=== PATIENT | male | born 1935 | race Caucasian/White ===

== ENCOUNTER 2017-10-11 00:04 | Inpatient (IN) ==
--- NOTE | 2017-10-11 00:39 | Emergency Department Report ---
Asthma HPI - General Chief Complaint: Upper Respiratory Infection Stated Complaint: fluid build up poss due to CHF, SOB Time Seen by Provider: 10/11/17 00:15 Source: patient, RN notes reviewed, old records reviewed Mode of arrival: ambulatory Limitations: no limitations - History of Present Illness HPI Narrative: 82yo man presents to the ER for evaluation of dyspnea/orthopnea. Pt began to note some new shortness of breath early this AM. His sx have gotten progressively worse throughout the day, but he was not troubled by his sx until he tried to sleep tonight. Pt lay down around 2100; could not sleep due to his dyspnea, so he presented to the ER for evaluation. Pt has a h/o CHF; no pedal edema noted. MD complaint: shortness of breath Onset (ago): hour(s) Severity: moderate, worse than usual Context: none known Associated symptoms: none - Related Data Current Asthma Therapy: none Home Medications Medication Instructions Recorded Confirmed Amiodarone [Pacerone] 200 mg PO DAILY #0 07/09/10 10/11/17 Simvastatin [Zocor] 20 mg PO DAILY #0 07/09/10 10/11/17 Timolol Maleate/Pf [Timoptic 0.5% 1 drop LEFT EYE PRN PRN #0 ml 11/02/14 Ocudose Drop] Warfarin Sodium 2 mg PO DAILY #0 11/02/14 10/11/17 Bumetanide 1 mg PO AM #0 tab 06/16/16 10/11/17 Midodrine HCl 10 mg PO TID #0 tab 06/16/16 10/11/17 metOLazone [Metolazone] 2.5 mg PO WEEKLY #0 tab 06/16/16 10/11/17 Spironolactone [Aldactone] 25 mg PO DAILY 07/03/17 10/11/17 Bumetanide 0.5 mg PO PM 10/11/17 10/11/17 Cyanocobalamin (Vitamin B-12) 2,000 mg PO DAILY 10/11/17 10/11/17 [Vitamin B12] Allergies Allergy/AdvReac Type Severity Reaction Status Date / Time carvedilol Allergy Verified 10/11/17 00:31 minocycline Allergy Verified 10/11/17 00:31 Review of Systems All systems: reviewed and negative except as stated Cardiovascular: Reports: as per HPI, dyspnea on exertion, orthopnea. Denies: chest pain, palpitations, edema, syncope, paroxysmal nocturnal dyspnea [facility] Patient Stated Medical History Cataracts Yes Glaucoma Yes Angina Yes Congestive Heart Failure Yes: 'WORKS AT 15%' Hypotension Yes Valvular Heart Disease Yes: 'MITRAL VALVE LEAKS' Other Cardiology Yes: 'MY HEART IS ENLARGED' Gastroesophageal Reflux Yes Disease Clotting Problems Yes: WARFRIN Osteoarthritis Yes Surgical History: General: EGD, colonoscopy, tonsils. Cardiac: cardiac cath, implantable defib. Joint: knee - Social History Smoking status: Never smoker Physical Exam - Limitations Limitations: no limitations - General General appearance: alert, in no apparent distress - Normal Exams: Head:: Normocephalic without trauma Eyes:: Pupils are PERRLA w/ EOMI, No scleral icterus, irritation, or foreign bodies noted ENMT:: No facial trauma, nasal exudates, pharyngeal erythema, or exudates are noted Neck:: Full range of motion, without adenopathy Lymphatic:: No lymphadenopathy Musculoskeletal:: No tenderness, or deformity noted Integumentary:: No rashes, hives, or bruising noted Neurological:: Patient is alert, and oriented Psychiatric:: Patient exhibits, appropriate attention - Chest Chest inspection: Present: normal inspection, symmetric chest wall rise. Absent : tenderness, rash - Respiratory Respiratory exam: Present: crackles (B/l LL). Absent: normal lung sounds bilaterally, respiratory distress, wheezes, stridor, prolonged expiratory phase - Cardiovascular Cardiovascular exam: Present: regular rate, normal rhythm, +S1, +S2, +S4. Absent: normal heart sounds, rubs, gallop, clicks, +S3 - Extremities Exam Extremities exam: Present: normal inspection, full ROM, normal capillary refill. Absent: tenderness, pedal edema Course - Consultations Consultation #1: Tele-hospitalist: Will admit for obs. Time: 02:46 Vital Signs Temperature 98.7 F 10/11/17 00:08 Pulse Rate 78 10/11/17 00:08 Respiratory Rate 20 10/11/17 00:08 Blood Pressure 101/66 10/11/17 00:08 Pulse Oximetry 92 10/11/17 00:08 Temperature 98.7 F 10/11/17 00:08 Pulse Rate 64 10/11/17 02:30 Respiratory Rate 18 10/11/17 01:45 Blood Pressure 104/73 10/11/17 01:45 Pulse Oximetry 92 10/11/17 02:45 Dyspnea - MDM Narrative Medical decision making narrative: Pt with CHF exacerbation in the setting of CRF. IV Bumex has caused pt to off- load appx 400cc in the ER, with improvement in pts SaO2 (from 69% on RA to 86%) , but pt still not oxygenating adequately without supplemental O2. Discussed pt with tele-hospitalist, who will admit for overnight obs. - Differential Diagnosis Differential diagnosis: Likely: Pneumonia, Pulmonary edema systolic, Pulmonary edema dystolic, Pneumothorax - Medical Records Attestation: I reviewed the patient's medical records. - Lab Data Attestation: I reviewed the patient's lab results. Result diagrams: 10/11/17 00:40 10/11/17 00:41 Lab Results 10/11/17 10/11/17 10/11/17 Range/Units 00:40 00:40 00:41 WBC 5.4 (4.5-11.0) T/MM3 RBC 4.24 L (4.50-5.90) M/MM3 Hgb 11.9 L (13.5-17.5) GM/DL Hct 37.3 L (41-53) % MCV 88.0 (80-100) UM3 MCH 28.1 (26-34) UUG MCHC 31.9 (31-37) GM/DL RDW Std Deviation 50.2 (36.9-50.2) FL Plt Count 213 (130-400) T/MM3 MPV 9.2 L (9.4-12.4) UM3 Immature Gran % (Auto) 0.4 (0.0-0.5) % Neut % (Auto) 71.3 H (33-66) % Lymph % (Auto) 14.4 L (23-45) % [place] % (Auto) 12.2 H (0-9.0) % Eos % (Auto) 1.3 (0-4) % Baso % (Auto) 0.4 (0-2) % Neut # (Auto) 3.9 (1.8-7.7) T/MM3 Lymph # (Auto) 0.8 L (1-4.8) T/MM3 [place] # (Auto) 0.7 (0-0.8) T/MM3 Eos # (Auto) 0.1 (0-0.5) T/MM3 Baso # (Auto) 0.0 (0-0.2) T/MM3 Abs Immat Gran (auto) 0.02 (0.00-0.03) T/MM3 Turbidity < 20 (0-20) Sodium 139 (134-144) MEQ/L Potassium 3.4 L (3.6-5) MEQ/L Chloride 100 (98-107) MEQ/L Carbon Dioxide 26 (22-30) MEQ/L Anion Gap 13 (5-15) MEQ/L BUN 49.0 H (9-20) MG/DL Creatinine 2.8 H (0.8-1.5) MG/DL GFR Calculation 22 BUN/Creatinine Ratio 18 (6-26) RATIO Glucose 117 H (75-110) MG/DL Calculated Osmolality 282 H (261-280) MOSM/KG Calcium 9.1 (8.4-10.2) MG/DL Icterus Index < 2 (0-7) Troponin I 0.056 (0-0.12) ng/ml B-Natriuretic Peptide 26025 H (0-175) pg/mL Plasma Lactate 1.1 (0.6-2.2) MMOL/L Specimen Hemolysis < 15 (0-25) Influenza Type A (PCR) Negative (Negative) Influenza Type B (PCR) Negative (Negative) - Radiology Data Attestation: I reviewed the patient's radiology results. CXR: Marginally increased vascular prominence compared to prior films. C/w viral process vs increasing pulm congestion. - EKG Data EKG #1 EKG attestation: Yes: I reviewed and interpreted this EKG. EKG results narrative: Electronically paced Disposition Clinical Impression: Hypoxemia CHF exacerbation Qualifiers: Congestive heart failure type: unspecified Qualified Code(s): I50.9 - Heart failure, unspecified CRF (chronic renal failure) Qualifiers: Chronic kidney disease stage: stage 4 (severe) Qualified Code(s): N18.4 - Chronic kidney disease, stage 4 (severe) Disposition: [facility] [place] Print Language: Arabic Prescriptions: No Action Simvastatin [Zocor] 20 mg PO DAILY #0 Amiodarone [Pacerone] 200 mg PO DAILY #0 Warfarin Sodium 2 mg PO DAILY #0 Timolol Maleate/Pf [Timoptic 0.5% Ocudose Drop] 1 drop LEFT EYE PRN PRN #0 ml PRN Reason: Dry Eyes Midodrine HCl 10 mg PO TID #0 tab Bumetanide 0.5 mg PO PM Cyanocobalamin (Vitamin B-12) [Vitamin B12] 2,000 mg PO DAILY Bumetanide 1 mg PO AM #0 tab metOLazone [Metolazone] 2.5 mg PO WEEKLY #0 tab Spironolactone [Aldactone] 25 mg PO DAILY Referrals: Chai Martinez MD [Primary Care Provider] - Time of Disposition: 03:05 - Seen By: physician
[2017-10-11] MEDS: SALINE FLUSH 10ml SYRINGE IVF PRN ×3 (00:41→05:10)
[2017-10-11] MEDS ORDERED: BUMETANIDE 2.5mg/10ml INJECTION IVP ONE (01:40)
--- NOTE | 2017-10-11 03:30 | History & Physical Report ---
History of Present Illness Date: 10/11/17 Chief complaint: shortness of air HPI: 82 y/o male w/ h/o cardiomyopathy, CHF, valvular heart disease and multiple other medical conditions presents to ER brought by his son d/t increasing dyspnea / shortness of air over the past 24 hours and also orthopnea noted when he tried to go to bed last night. Patient states he took a Metolazone tab yesterday morning however did not help - has helped in the past but not this time. Denies cp, diaphoresis, dysphagia, n/v/d, melena, palpitations, dizziness, lightheadedness and syncope; reports HARDY starting just before leaving home for the ER - states is better now In ED had initial sats on RA in the 60s, given O2 at 2L/min, a dose of Bumex 1mg IV x one and sats now in the 90s on 2 L/min. Patient is not on any O2 at [facility]. CXR showed increased pulmonary vascular congestion, no acute infectious process. Influenza swabs were negative. BUN/Cr = 45/2.8; BNP = 31,700. Troponin = 0.056 Patient to be admitted to the hospitalist service for further evaluation and management and Cardiology consulted. Review of Systems All systems PM: 10-point ROS was reviewed, no additional remarkable complaints except Past Medical History Patient Stated Medical History Cataracts Yes Glaucoma Yes Angina Yes Congestive Heart Failure Yes: 'WORKS AT 15%' Hypotension Yes Valvular Heart Disease Yes: 'MITRAL VALVE LEAKS' Other Cardiology Yes: 'MY HEART IS ENLARGED' Gastroesophageal Reflux Yes Disease Clotting Problems Yes: WARFRIN Osteoarthritis Yes Was not a candidate for the mitral clip Surgical History: General: EGD, colonoscopy, tonsils. Cardiac: cardiac cath, implantable defib. Joint: knee Family History Updates: No significant family history updates reported - Social History Smoking status: Never smoker Medications Home Medications Medication Instructions Recorded Confirmed Type Amiodarone [Pacerone] 200 mg PO DAILY #0 07/09/10 10/11/17 History Simvastatin [Zocor] 20 mg PO DAILY #0 07/09/10 10/11/17 History Timolol Maleate/Pf [Timoptic 0.5% 1 drop LEFT EYE PRN PRN #0 ml 11/02/14 History Ocudose Drop] Warfarin Sodium 2 mg PO DAILY #0 11/02/14 10/11/17 History Bumetanide 1 mg PO AM #0 tab 06/16/16 10/11/17 History Midodrine HCl 10 mg PO TID #0 tab 06/16/16 10/11/17 History metOLazone [Metolazone] 2.5 mg PO WEEKLY #0 tab 06/16/16 10/11/17 History Spironolactone [Aldactone] 25 mg PO DAILY 07/03/17 10/11/17 History Bumetanide 0.5 mg PO PM 10/11/17 10/11/17 History Cyanocobalamin (Vitamin B-12) 2,000 mg PO DAILY 10/11/17 10/11/17 History [Vitamin B12] Allergies Allergy/AdvReac Type Severity Reaction Status Date / Time carvedilol Allergy Verified 10/11/17 00:31 minocycline Allergy Verified 10/11/17 00:31 Exam Vital Signs: Temperature 98.7 F 10/11/17 00:08 Pulse Rate 64 10/11/17 02:30 Respiratory Rate 18 10/11/17 01:45 Blood Pressure 104/73 10/11/17 01:45 Pulse Oximetry 92 10/11/17 02:45 Height/Weight/BMI: Height 1.65 m Weight 69.3 kg - Constitutional Present: no acute distress, well nourished, well developed - Routine HEENT Exam Head: Present: normocephalic, atraumatic Eye: Present: EOMI, PERRL ENT: Present: mucous membranes moist, nares patent - Routine Neck Exam Present: supple, full ROM - Routine Respiratory Exam Present: crackles (bibasilar). Absent: accessory muscle use, respiratory distress, wheezes - Routine Cardiovascular Exam Present: S1, S2 - Routine Abdominal Exam Present: soft, normoactive bowel sounds, non distended, non tender - Routine Extremities Exam Absent: cyanosis, clubbing, edema - Routine Skin Exam Present: dry - Routine Neurological Exam Present: alert, oriented X3, CN II-XII intact - Routine Psychiatric Exam Present: normal affect, normal thought process Results - Labs CBC & Chem 7: 10/11/17 07:15 10/11/17 07:15 Microbiology Results: Microbiology 10/11/17 00:40 Peripheral/Iv Start Blood Culture - Preliminary Culture Initiated - Results Pending 10/11/17 00:41 Peripheral/Iv Start Blood Culture - Preliminary Culture Initiated - Results Pending Assessment and Plan Assessment and Plan: A/ 1) Acute exacerbation of CHF 2) Acute Hypoxia r/t #1 3) CKD stage IV 4) Cardiomyopathy 5) Valvular heart disease w/ severe MR 6) HLD 7) H/o HTN however now hypotensive on midodrine P/ Admit to Hospitalist Bumex 1mg IV q 12 hours for now - continue to reassess need as indicated; holding po dose while on IV Bumex Labs in AM including CBC, BMP, Troponin and PT/INR Oxygen therapy Cardiology consult - sees Dr. Lubin Telemetry SCDs Continue warfarin Home meds as indicated I discussed the plan of care w/ the patient and the patient verbalized understanding and agreement. ABRAHAM Assessment Acute on chronic systolic heart failure Acute pulmonary edema Acute hypoxia secondary to above. 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 Anticipate greater than 2 midnights of care needed. Cardiac tele secondary to afib, cardiomyopathy and medications. Check Serial troponin due to HF. Supplemental oxygen to maintain saturations. Increase Bumex to help motivate fluid - Bumex 1mg IV BID orders. Will need to monitor creatinine, potassium, and BP closely. Consult with Dr Lubin for cardiac evaluation. Continue with Coumadin, monitoring INR. Pharm consult for management. Home medications to continue - holding oral Bumex while on IV Bumex. PT/OT consult for cardiac rehabilitation. Check liver enzymes secondary to heart failure and medication use. Check TSH secondary to medication use and HF. DNR as per his requests. Care to return to Dr Martinez at time of discharge from [facility]. DVT Prophylaxis: SCD's, Coumadin Resuscitation Status: Full Code - Physician Narrative Physician: Michael Humphreys MD Narrative: Date: 10/11/17 Time: 1340 I have independently interviewed and examined pt. Chart reviewed. Reviewed old records. Reviewed above not and concur. CC: Difficulty breathing/SOA HPI: 82 y/ male with Severe nonischemic dilatated cardiomyopathy and stage 4 CKD presents to ED secondary to difficulty breathing. Notes very mild increased SOA in days prior to presentation. Not have cough/congestion/viral syndrome. Did take his weekly metolazone as scheduled yesterday. However, noted he did not having increase urine output with the metolazone as he usually dose-very little urine out yesterday. No urinary burning or discomfort. Feels was emptying bladder well. Had minor increased SOA during day. Not having increased LE edema. Went to bed. Did wake from sleep with significant SOA-could not catch his breath. Did feel full to chest. No palpitations. Appetite normal-no n/v or ab pain. Stools stable with OTC medications. No f/c. Not having spams or cramps to extremities. No unilateral weakness/numbness. With breathing so severe, contacted son to take him to ED for evaluation. Hypoxic on presentation (RA saturation 83%)-does not use O2 at home. CXR showing pulmonary edema. Admitted to inpatient status for further evaluation and treatment. PMHx: Chronic systolic heart failure-severe nonischemic dilated cardiomyopathy with EF 15-35%, Valvular heart disease with severe MR, Afib, Warfarin anticoagulation due to afib/cardiomyopathy, HDL, Hx hypertension, Chronic hypotension secondary to cardiomyopathy, Stage 4 CKD, GERD, BPH, OA. PSxHx: Hx defibrilatory placement, right knee replacement, cataract Sx. All: Coreg, minocycline MEDS: see MAR SHx: , resides independently in 1 bedroom apt at [place]. No smoking. Michelle PCP, [facility], Kendrick Brandon Renal FHx: Father at 97 - uncertain cause. Mother at 54-[place]. Brother at 49-[place]. ROS: As in HPI. Remainder of 10 point ROS discussed and negative. Of not, pt's reflux better since starting on medication by Dr Martinez-not listed on NOV. Does not arthritic pain to neck-uses aspercreme with good success. Exam GEN: WDWNWM awake and alert. Converses well. HEENT: NC/AT PERRLA EOMI MMM Neck: midline, supple, no tracheal deviation CV: regular Lungs: decreased bilaterally, diffuse crackles bilaterally. No distress on RA AB: soft nt/nd +BS EXT: no c/c. Trace LE Edema Neuro: CN II-XII intact. No focal motor deficits Psych: awake alert appropriate. Thoughts linear. MS: normal muscle strength and tone in upper/lower ext SKIN: warm and dry Lab: reviewed. Assessment Acute on chronic systolic heart failure Acute pulmonary edema Acute hypoxia secondary to above. 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 Anticipate greater than 2 midnights of care needed. Cardiac tele secondary to afib, cardiomyopathy and medications. Check Serial troponin due to HF. Supplemental oxygen to maintain saturations. Increase Bumex to help motivate fluid - Bumex 1mg IV BID orders. Will need to monitor creatinine, potassium, and BP closely. Consult with Dr Lubin for cardiac evaluation. Continue with Coumadin, monitoring INR. Pharm consult for management. Home medications to continue - holding oral Bumex while on IV Bumex. Replace potassium. PT/OT consult for cardiac rehabilitation. Check liver enzymes secondary to heart failure and medication use. Check TSH secondary to medication use and HF. DNR as per his requests. Care to return to Dr Martinez at time of discharge from [facility]. Hospital Course Summary Disclaimer: The visit summary below is not to be considered part of the above Progress Note. Hospital Course: 10/11/17 Admission Inpatient admission for treatment of acute systolic heart failure with subsequent pulmonary edema and hypoxia. Anticipate greater than 2 midnights of care needed. Cardiac tele secondary to afib, cardiomyopathy and medications. Check Serial troponin due to HF. Supplemental oxygen to maintain saturations. Increase Bumex to help motivate fluid - Bumex 1mg IV BID orders. Will need to monitor creatinine, potassium, and BP closely. Consult with Dr Lubin for cardiac evaluation. Continue with Coumadin, monitoring INR. Pharm consult for management. Home medications to continue - holding oral Bumex while on IV Bumex. Replace potassium. PT/OT consult for cardiac rehabilitation. Check liver enzymes secondary to heart failure and medication use. Check TSH secondary to medication use and HF. DNR as per his requests. Care to return to Dr Martinez at time of discharge from [facility].
[2017-10-11 04:40] VITALS: BMI 24.9
--- NOTE | 2017-10-11 06:54 | XRay Report ---
Indication: Dyspnea Procedure: XR chest 1V: Encounter: Initial Comparison: 07/03/2017 Technique: A single portable AP chest radiograph was obtained. Findings: Life support devices: Unchanged left pectoral dual-chamber biventricular pacer/ICD device. Lungs and airways: Normal lung volumes. No focal airspace consolidation. Pulmonary vascular redistribution. Increased basilar interstitial markings. Pleura: No pleural effusion or pneumothorax. Heart and mediastinum: Cardiomegaly. Aortic atherosclerosis. Osseous structures and soft tissues: No acute osseous abnormality is seen. Impression: Cardiomegaly with pulmonary vascular redistribution and increased basilar interstitial markings suggesting mild congestive changes and early interstitial edema. .
[2017-10-11] MEDS ORDERED: BUMETANIDE 2.5mg/10ml INJECTION IVP SCH (08:00)
[2017-10-11] MEDS: TIMOLOL 0.5% EYE DROPS 5 ML LEFT EYE SCH ×2 (09:20→20:43)
[2017-10-11] MEDS: ACETAMINOPHEN 325 MG TABLET PO PRN ×2 (09:20→22:50)
[2017-10-11] MEDS: AMIODARONE 200 MG TABLET PO SCH (09:21)
[2017-10-11] MEDS: SPIRONOLACTONE 25 MG TABLET PO SCH (09:21)
[2017-10-11] MEDS: MIDODRINE 10 MG TABLET PO SCH ×3 (09:21→17:19)
[2017-10-11] MEDS ORDERED: WARFARIN 2 MG TABLET PO SCH (12:00)
[2017-10-11] MEDS ORDERED: BISACODYL 10 MG SUPPOSITORY RECTALLY PRN (12:49)
[2017-10-11] MEDS ORDERED: WARFARIN - PHARMACY CONSULT MC ONE (12:50)
--- NOTE | 2017-10-11 13:46 | Pharmacy Consult ---
Pharmacy Consult-Warfarin - Laboratory Information 10/11/17 07:15 INR 2.77 H - Consult Information COUMADIN CONSULT (Initial): 82 yr old male 5'5" 68 kg on Warfarin 2 mg daily at home. Dx: Dyspnea - Fluid retention Baseline INR = 2.77. Will give Warfarin 2 mg today. The INR is within the therapeutic range of 2-3 at this time. If antibiotics started then the home med dose of 2 mg daily may have to be adjusted. Pharmacy will monitor and adjust the dose as needed. Thank you. Lora Loza, PharmD
--- NOTE | 2017-10-11 16:36 | Cardiology Consult Note ---
<Courtney Nagy - Last Filed: 10/11/17 17:39> History of Present Illness Consult date: 10/11/17 Requesting physician: Michael Humphreys Consult reason: congestive heart failure Chief complaint: Orthopnea, dyspnea History of present illness: Mr Beaver is an 82yo male well known to Dr. Lubin for DCM, PAF, moderate to severe MR, VT, HTN, CKD, Biotronik BiV/D (placed 2011). He reports being up 3lbs for the week yesterday and taking his 2.5mg metolazone but he did not seem to void as much as usual in response. He then had recurrent orthopnea, making it impossible to lye down to sleep and he presented to the ED for eval. He reports a couple weeks of dry mouth and thinks he may have been drinking more fluids than usual. Denies precipitating progressive dyspnea, chest pain or tightness or palpitations. He denies sensations of ATP or device shock; denies near syncope. He is aware his renal function is worsening and has discussed dialysis with Dr. Brandon, whom he follows for his CKD. Baseline creatinine 2- 2.5. He is on warfarin for his AFib and follows with our clinic for management. Review of Systems - Constitutional Constitutional: Present: weight gain. Absent: anorexia, fatigue, fever(s), lethargy - EENMT Eyes: Absent: change in vision Balance: Absent: vertigo Mouth/Throat: Present: dry mouth. Absent: sore throat - Cardiovascular Cardiovascular: Present: dyspnea on exertion, orthopnea, heart murmur. Absent: chest pain, palpitations, syncope, edema Rhythm: Present: regular rhythm Vascular: Absent: pedal edema - Respiratory Respiratory: Present: dyspnea, wheezing. Absent: cough, chest congestion - Gastrointestinal Gastrointestinal: Absent: abdominal pain, constipation - Genitourinary Genitourinary: Absent: difficulty urinating, dysuria - Musculoskeletal Musculoskeletal: Absent: abnormal gait - Neurological Neurological: Absent: abnormal gait, confusion, dizziness, focal weakness, vertigo, weakness - Psychiatric Psychiatric: Absent: anxiety PFSH Patient Stated Medical History Cataracts Yes Glaucoma Yes Angina Yes Congestive Heart Failure Yes: 'WORKS AT 15%' Hypotension Yes Valvular Heart Disease Yes: 'MITRAL VALVE LEAKS' Other Cardiology Yes: 'MY HEART IS ENLARGED' Gastroesophageal Reflux Yes Disease Clotting Problems Yes: WARFARIN Osteoarthritis Yes Shingles Yes Surgical History: General: EGD, colonoscopy, tonsils. Cardiac: cardiac cath, implantable defib. Joint: knee Family History: Family hx of CAD - Social History Smoking status: Never smoker Current residence: Apartment/Private Home Medications Home Medications Medication Instructions Recorded Confirmed Type Amiodarone [Pacerone] 200 mg PO DAILY #0 07/09/10 10/11/17 History Timolol Maleate/Pf [Timoptic 0.5% 1 drop LEFT EYE PRN PRN #0 ml 11/02/14 History Ocudose Drop] Warfarin Sodium 2 mg PO DAILY #0 11/02/14 10/11/17 History Bumetanide 1 mg PO AM #0 tab 06/16/16 10/11/17 History Midodrine HCl 10 mg PO TID #0 tab 06/16/16 10/11/17 History metOLazone [Metolazone] 2.5 mg PO WEEKLY #0 tab 06/16/16 10/11/17 History Spironolactone [Aldactone] 25 mg PO DAILY 07/03/17 10/11/17 History Cyanocobalamin (Vitamin B-12) 2,000 mg PO DAILY 10/11/17 10/11/17 History [Vitamin B12] Allergies Allergy/AdvReac Type Severity Reaction Status Date / Time carvedilol Allergy Verified 10/11/17 00:31 minocycline Allergy Verified 10/11/17 00:31 Exam Vital signs: Temperature 95.1 F L 10/11/17 15:11 Pulse Rate 70 10/11/17 16:15 Respiratory Rate 20 10/11/17 16:15 Blood Pressure 94/71 10/11/17 15:11 Pulse Oximetry 95 10/11/17 16:15 - Constitutional no acute distress, well developed - Routine HEENT Exam Head: Present: normocephalic, atraumatic Eye: Present: PERRL, conjunctivae pink ENT: Present: mucous membranes moist Nose: moist mucous membranes - Routine Neck Exam Absent: JVD, carotid bruit - Routine Chest/Breast/Axilla Exam Chest wall: Absent: tenderness - Routine Respiratory Exam Present: CTA bilaterally. Absent: rales, rhonchi, wheezes - Routine Cardiovascular Exam Present: RRR, murmur (II/IV). Absent: irregular rhythm, JVD - Routine Abdominal Exam Present: soft, normoactive bowel sounds, non tender - Routine Extremities Exam Present: no edema, pulses intact - Routine Skin Exam Present: intact. Absent: pallor, rash - Routine Neurological Exam Present: alert, oriented X3, CN II-XII intact - Routine Psychiatric Exam Present: normal affect, normal thought process Results 10/11/17 07:15 10/11/17 07:15 Cardiac Enzymes 10/11/17 10/11/17 Range/Units 07:12 07:15 AST 38 (17-59) U/L Troponin I 0.046 (0-0.12) ng/ml CBC 10/11/17 Range/Units 07:15 WBC 4.3 L (4.5-11.0) T/MM3 RBC 4.23 L (4.50-5.90) M/MM3 Hgb 11.8 L (13.5-17.5) GM/DL Hct 37.2 L (41-53) % Plt Count 207 (130-400) T/MM3 Neut # (Auto) 2.9 (1.8-7.7) T/MM3 Lymph # (Auto) 0.7 L (1-4.8) T/MM3 [place] # (Auto) 0.6 (0-0.8) T/MM3 Eos # (Auto) 0.1 (0-0.5) T/MM3 Baso # (Auto) 0.0 (0-0.2) T/MM3 Comprehensive Metabolic Panel 10/11/17 10/11/17 Range/Units 07:12 07:15 Sodium 139 (134-144) MEQ/L Potassium 3.4 L (3.6-5) MEQ/L Chloride 98 (98-107) MEQ/L Carbon Dioxide 29 (22-30) MEQ/L BUN 47.0 H (9-20) MG/DL Creatinine 2.7 H (0.8-1.5) MG/DL Glucose 101 (75-110) MG/DL Calcium 9.2 (8.4-10.2) MG/DL Unconjugated Bilirubin 0.60 (0.00-1.1) MG/DL AST 38 (17-59) U/L ALT 45 (21-72) U/L Alkaline Phosphatase 73 (38-126) U/L Total Protein 6.8 (6.3-8.2) G/DL Albumin 3.8 (3.5-5.0) G/DL Intake and Output 10/11/17 10/11/17 10/11/17 06:59 14:59 22:59 Intake Total 780 / 780 Output Total 370 / 670 200 / 200 120 / 120 Balance -370 / -670 580 / 580 -120 / -120 Intake: Oral 780 / 780 Output: Urine 370 / 670 200 / 200 120 / 120 Other: Urine Appearance Clear Clear Clear Urine Color Yellow Yellow Yellow Urine Odor Normal # Voids 1 1 Weight 68 kg 68.2 kg Patient Weight 10/12/17 06:59 Weight 68.2 kg - Imaging and Cardiology Echo: pending Assessment and Plan - Assessment and Plan (1) CHF exacerbation Status: Acute (2) PAF (paroxysmal atrial fibrillation) Status: Chronic (3) Dilated cardiomyopathy Status: Chronic (4) Mitral regurgitation Status: Chronic (5) Hypotension Status: Acute (6) CRF (chronic renal failure) Status: Acute (7) Hypoxemia Status: Acute - Assessment and Plan CHF exacerbation Dilated Cardiomyopathy hypoxia CKD PAF MR Hypotension Agree with attending gentle diuresing. Pt took 2.5mg metolazone yesterday, bumex 1mg bid IV. BNP >30,000. CR 2.7, baseline 2-2.5, follows w/[facility]. Not a candidate for BB therapy for HF due to severe hypotension. Most recent ECHO 07/2017: EF 20-25, dilated left atrium and ventricle, mod- severe MR, pa pressure 57mmHg Continue supplemental O2 support per attending, lungs improving this afternoon. Tele AV paced, rate 60's; RN contacted [employer] reviewed home monitoring and report no events or arrhythmias. Will check device tomorrow. ECHO to be done tomorrow. THS pending, LFT's wnl. Troponin negative x2. Continue home midodrine, monitor pressures while diuresing. Hospital Course Summary Disclaimer: The visit summary below is not to be considered part of the above Progress Note. Hospital Course: 10/11/17 Admission Inpatient admission for treatment of acute systolic heart failure with subsequent pulmonary edema and hypoxia. Anticipate greater than 2 midnights of care needed. Cardiac tele secondary to afib, cardiomyopathy and medications. Check Serial troponin due to HF. Supplemental oxygen to maintain saturations. Increase Bumex to help motivate fluid - Bumex 1mg IV BID orders. Will need to monitor creatinine, potassium, and BP closely. Consult with Dr Lubin for cardiac evaluation. Continue with Coumadin, monitoring INR. Pharm consult for management. Home medications to continue - holding oral Bumex while on IV Bumex. Replace potassium. PT/OT consult for cardiac rehabilitation. Check liver enzymes secondary to heart failure and medication use. Check TSH secondary to medication use and HF. DNR as per his requests. Care to return to Dr Martinez at time of discharge from [facility] [place]. <Mihir Lubin - Last Filed: 10/14/17 11:24> [facility] Patient Stated Medical History Cataracts Yes Glaucoma Yes Angina Yes Congestive Heart Failure Yes: 'WORKS AT 15%' Hypotension Yes Valvular Heart Disease Yes: 'MITRAL VALVE LEAKS' Other Cardiology Yes: 'MY HEART IS ENLARGED' Gastroesophageal Reflux Yes Disease Clotting Problems Yes: WARFARIN Osteoarthritis Yes Shingles Yes Exam Vital signs: Temperature 96.6 F L 10/13/17 07:32 Pulse Rate 71 10/13/17 08:00 Respiratory Rate 18 10/13/17 07:32 Blood Pressure 95/67 10/13/17 07:32 Pulse Oximetry 95 10/13/17 07:41 Results 10/13/17 03:59 10/13/17 03:59 Assessment and Plan - Attestation Attestation Narrative: 10/14/17 11:24 Recommendation After examining the patient I agree with the above assessment. I am involved in the formulation of the patient's plan of care. - Assessment and Plan (1) CHF exacerbation Status: Acute (2) CRF (chronic renal failure) Status: Acute (3) Hypoxemia Status: Acute (4) PAF (paroxysmal atrial fibrillation) Status: Chronic (5) Mitral regurgitation Status: Chronic (6) Hypotension Status: Acute (7) Dilated cardiomyopathy Status: Chronic Hospital Course Summary Disclaimer: The visit summary below is not to be considered part of the above Progress Note.
[2017-10-11] MEDS: SIMVASTATIN 20 MG TABLET PO SCH (20:43)
--- NOTE | 2017-10-12 07:24 | Pharmacy Consult ---
Pharmacy Consult-Warfarin - Laboratory Information 10/11/17 10/12/17 07:15 03:51 INR 2.77 H 2.88 H - Consult Information INR is in target range. Warfarin 2mg ordered for today. Will continue to monitor. Thank you.
[2017-10-12] MEDS: MIDODRINE 10 MG TABLET PO SCH ×3 (07:54→17:21)
[2017-10-12] MEDS: ACETAMINOPHEN 325 MG TABLET PO PRN (07:56)
[2017-10-12] MEDS: AMIODARONE 200 MG TABLET PO SCH (08:00)
[2017-10-12] MEDS: SPIRONOLACTONE 25 MG TABLET PO SCH (08:00)
[2017-10-12] MEDS: TIMOLOL 0.5% EYE DROPS 5 ML LEFT EYE SCH ×2 (08:00→21:22)
--- NOTE | 2017-10-12 09:57 | Progress Note ---
- Date 10/12/17 Subjective: F/U: Acute on chronic systolic heart failure, Acute pulmonary edema, Acute hypoxia secondary to above. Doing very well this morning. Feeling much better. Breathing easier-less SOA/ congested. Not having cough. No pain with breathing. Denies chest pressure/ heaviness/palpitations. Weaned off O2 and maintaining well on RA. Denies feeling dizzy or unsteady with positional changes. Has ambulated in kinney this morning and did well-no SOA or chest pressure. Appetite stable. No ab pain. Bowels stable. Urinating well. Objective Vital signs: Temperature 98.0 F 10/12/17 07:00 Pulse Rate 68 10/12/17 08:00 Respiratory Rate 18 10/12/17 07:00 Blood Pressure 105/69 10/12/17 07:00 Pulse Oximetry 95 10/12/17 07:00 Height/Weight/BMI: Height 1.65 m Weight 67.7 kg Body Mass Index 24.9 - Constitutional Present: well nourished, well developed, average body habitus, cooperative - Routine HEENT Exam Head: Present: normocephalic, atraumatic Eye: Present: EOMI, PERRL ENT: Present: mucous membranes moist - Routine Respiratory Exam Present: decreased breath sounds. Absent: rales, respiratory distress, rhonchi , stridor, wheezes, crackles - Routine Cardiovascular Exam Present: RRR, murmur - Routine Abdominal Exam Present: soft, normoactive bowel sounds, non distended, non tender. Absent: guarding - Routine Extremities Exam Present: no edema, pulses intact. Absent: cyanosis, clubbing - Routine Musculoskeletal Exam Musculoskeletal: Present: no clubbing or cyanosis, normal strength - Routine Skin Exam Present: dry, warm - Routine Neurological Exam Present: alert, oriented X3, CN II-XII intact, moving all extremities, vision grossly intact, hearing grossly intact, normal speech. Absent: motor deficit, altered mental status - Routine Psychiatric Exam Present: normal affect, normal thought process, cooperative, good insight, good judgment Results - Labs CBC & Chem 7: 10/12/17 03:51 10/12/17 03:51 Assessment and Plan Assessment and Plan: Assessment Acute on chronic systolic heart failure Acute pulmonary edema Acute hypoxia secondary to above Hypokalemia (POA) Nonischemic dilatated cardiomyopathy with EF decreased Valvular heart disease with severe MR HDL Chronic hypotension secondary to cardiomyopathy Warfarin anticoagulation secondary to Afib/cardiomyopathy Stage 4 CKD GERD BPH Anemia of chronic disease/CKD Plan Clinically much improved. Breathing better. Creatinine stable. Will decrease Bumex to home dose. Oral potassium 20mEg x1 today. Ambulate QID to monitor for cardiopulmonary symptoms. PT/OT eval placed. Weaned off O2 - monitor oxygen status on RA. Will recheck CXR in am for follow up of pulmonary edema. Recheck BMP in am due to medication use, CKD and hypokalemia. Recheck INR in am due to warfarin use. Likely home in near future if continues to do well. Time spent with patient care 25 minutes. DVT Prophylaxis: SCD's, Coumadin Resuscitation Status: Do Not Resuscitate - Time spent with patient Time with patient PN: 25 minutes - Physician Narrative Physician: Michael Humphreys MD Narrative: Date: 10/12/17 Time: 09 Hospital Course Summary Disclaimer: The visit summary below is not to be considered part of the above Progress Note. Hospital Course: 10/11/17 Admission Inpatient admission for treatment of acute systolic heart failure with subsequent pulmonary edema and hypoxia. Anticipate greater than 2 midnights of care needed. Cardiac tele secondary to afib, cardiomyopathy and medications. Check Serial troponin due to HF. Supplemental oxygen to maintain saturations. Increase Bumex to help motivate fluid - Bumex 1mg IV BID orders. Will need to monitor creatinine, potassium, and BP closely. Consult with Dr Lubin for cardiac evaluation. Continue with Coumadin, monitoring INR. Pharm consult for management. Home medications to continue - holding oral Bumex while on IV Bumex. Replace potassium. PT/OT consult for cardiac rehabilitation. Check liver enzymes secondary to heart failure and medication use. Check TSH secondary to medication use and HF. DNR as per his requests. Care to return to Dr Martinez at time of discharge from [facility] [place] [place]. 10/12/17 Clinically much improved. Breathing better. Creatinine stable. Will decrease Bumex to home dose. Oral potassium 20mEg x1 today. Ambulate QID to monitor for cardiopulmonary symptoms. PT/OT eval placed. Weaned off O2 - monitor oxygen status on RA. Will recheck CXR in am for follow up of pulmonary edema. Likely home in near future if continues to do well.
--- NOTE | 2017-10-12 11:43 | Cardiology Progress Note ---
<Emeli Nunez - Last Filed: 10/13/17 08:49> Subjective Principal diagnosis: CHF Interval history: Abner is seen in follow up for CHF exacerbation. He states his breathing is improved but still labored when he exerts himself. He denies chest pain or pressure. Exam Vital signs: Temperature 98.0 F 10/12/17 07:00 Pulse Rate 68 10/12/17 08:00 Respiratory Rate 18 10/12/17 07:00 Blood Pressure 105/69 10/12/17 07:00 Pulse Oximetry 95 10/12/17 07:00 - Constitutional no acute distress, well nourished, cooperative - Routine HEENT Exam Head: Present: normocephalic ENT: Present: mucous membranes moist - Routine Neck Exam Present: JVD. Absent: carotid bruit - Routine Chest/Breast/Axilla Exam Chest wall: Absent: tenderness - Routine Respiratory Exam Present: decreased breath sounds, rales. Absent: CTA bilaterally - Routine Cardiovascular Exam Present: RRR, murmur (II/), JVD - Routine Abdominal Exam Present: soft, normoactive bowel sounds - Routine Extremities Exam Present: edema - Routine Skin Exam Present: intact, dry, warm - Routine Neurological Exam Present: alert, oriented X3 - Routine Psychiatric Exam Present: normal affect, normal thought process - Additional findings Additional findings: Acetaminophen (Tylenol) 650 mg PO Q5H PRN PRN Reason: Discomfort Last Admin: 10/12/17 07:56 Dose: 650 mg Amiodarone HCl (Pacerone) 200 mg PO DAILY COUNT INCLUDES THE [facility] Last Admin: 10/12/17 08:00 Dose: 200 mg Bisacodyl (Dulcolax) 10 mg RECTALLY DAILY PRN PRN Reason: Constipation Bumetanide (Bumex Tab) 1 mg PO DAILY COUNT INCLUDES THE [facility] Magnesium Hydroxide (Mom) 30 ml PO DAILY PRN PRN Reason: Constipation Metolazone (Zaroxolyn) 2.5 mg PO WEEKLY COUNT INCLUDES THE [facility] Midodrine (Proamatine) 10 mg PO 0800,1300,1700 COUNT INCLUDES THE [facility] Last Admin: 10/12/17 07:54 Dose: 10 mg Pneumococcal 7-Valent Conj Vacc (Prevnar 13) 0.5 ml IM .ONCE ONE Stop: 10/12/17 12:01 Potassium Chloride (K-Dur 20 Meq Tablet) 20 meq PO O ONE Stop: 10/12/17 12:31 Simvastatin (Zocor) 20 mg PO HS COUNT INCLUDES THE [facility] Last Admin: 10/11/17 20:43 Dose: 20 mg Sodium Chloride (Iv Flush) 10 - 80 ml IVF PRN PRN PRN Reason: Flushing Last Admin: 10/11/17 05:10 Dose: 10 ml Spironolactone (Aldactone) 25 mg PO DAILY COUNT INCLUDES THE [facility] Last Admin: 10/12/17 08:00 Dose: 25 mg Timolol Maleate (Timoptic 0.5% Eye Drops) 1 drops LEFT EYE BID COUNT INCLUDES THE [facility] Last Admin: 10/12/17 08:00 Dose: 1 drops Trolamine Salicylate (Aspercreme) 1 applic TOP QID PRN PRN Reason: MUSCLE ACHES AND PAIN Last Admin: 10/12/17 07:11 Dose: 1 applic Warfarin Sodium (Coumadin Protocol) 0 MC NOTE COUNT INCLUDES THE [facility] Warfarin Sodium (Coumadin) 2 mg PO NOON COUNT INCLUDES THE [facility] Stop: 10/12/17 12:30 Results 10/13/17 03:59 10/13/17 03:59 Cardiac Enzymes 10/11/17 Range/Units 07:12 AST 38 (17-59) U/L CBC 10/12/17 Range/Units 03:51 WBC 5.1 (4.5-11.0) T/MM3 RBC 4.22 L (4.50-5.90) M/MM3 Hgb 11.8 L (13.5-17.5) GM/DL Hct 36.8 L (41-53) % Plt Count 196 (130-400) T/MM3 Neut # (Auto) 3.5 (1.8-7.7) T/MM3 Lymph # (Auto) 0.9 L (1-4.8) T/MM3 [place] # (Auto) 0.6 (0-0.8) T/MM3 Eos # (Auto) 0.1 (0-0.5) T/MM3 Baso # (Auto) 0.0 (0-0.2) T/MM3 Comprehensive Metabolic Panel 10/11/17 10/12/17 Range/Units 07:12 03:51 Sodium 139 (134-144) MEQ/L Potassium 3.5 L (3.6-5) MEQ/L Chloride 99 (98-107) MEQ/L Carbon Dioxide 27 (22-30) MEQ/L BUN 48.0 H (9-20) MG/DL Creatinine 2.8 H (0.8-1.5) MG/DL Glucose 102 (75-110) MG/DL Calcium 9.3 (8.4-10.2) MG/DL Unconjugated Bilirubin 0.60 (0.00-1.1) MG/DL AST 38 (17-59) U/L ALT 45 (21-72) U/L Alkaline Phosphatase 73 (38-126) U/L Total Protein 6.8 (6.3-8.2) G/DL Albumin 3.8 (3.5-5.0) G/DL Intake and Output 10/11/17 10/12/17 10/12/17 22:59 06:59 14:59 Intake Total 550 / 550 100 / 100 430 / 430 Output Total 120 / 120 Balance 430 / 430 100 / 100 430 / 430 Intake: Oral 550 / 550 100 / 100 430 / 430 Output: Urine 120 / 120 Other: Urine Appearance Clear Clear Urine Color Yellow Yellow # Voids 3 2 1 Weight 149 lb 4.047 oz Patient Weight 10/13/17 06:59 Weight 149 lb 4.047 oz - Imaging and Cardiology Echo: report reviewed EKG results: image reviewed Imaging & Cardiology Narrative: Date of Exam: 10/12/17 Type of Exam(s): US echo doppler complete DATE OF PROCEDURE October 12, 2017 This is a two-dimensional echo with spectral Doppler, color-flow and M-mode. It was obtained in a patient with congestive heart failure and pacemaker. Left atrium is dilated. Left ventricular end-diastolic dimension is increased. Left ventricular wall thickness is normal. LV systolic function is reduced with severe global hypokinesia with ejection fraction of about 10%. Right atrium is dilated. Right ventricle is dilated. Aortic root dimension is at the upper limits of normal. Mitral valve is sclerotic with rzuzkqzv-by-eltvyv mitral regurgitation. Aortic valve is a trileaflet structure with some fibrocalcific changes. Transaortic velocities are increased with a peak velocity of 1.91 m/sec with a peak gradient of 15 and mean gradient of 7. Aortic valve area is calculated at 0.97 cm2. However, this could be overestimation since severe LV dysfunction is present. Moderate aortic insufficiency is present. Tricuspid valve shows [id number] tricuspid regurgitation with severe pulmonary hypertension with estimated pulmonary artery systolic pressure of 68. Pulmonary valve shows mild pulmonary insufficiency. There is no pericardial effusion. Pacemaker is seen in the right heart. IMPRESSION 1. Four-chamber dilation. 2. Severe global hypokinesia with ejection fraction of about 10%. 3. Lrjjntem-ws-obwgiv mitral regurgitation. 4. Aortic sclerosis versus aortic stenosis. Valve area is calculated at 0.97 cm2. However, I believe this is overestimation due to LV dysfunction. Aortic valve area likely is in normal range. 5. Rrztdtea-rs-bukaki tricuspid regurgitation with severe pulmonary hypertension with estimated pulmonary artery systolic pressure of 68. 6. Mild pulmonary insufficiency. 7. 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 10/13/17 09:02 - EKG Interpretation EKG: WNL (atrial and ventricular paced) Assessment and Plan - Assessment and Plan (1) CHF exacerbation Status: Acute (2) CRF (chronic renal failure) Status: Acute (3) Hypoxemia Status: Acute (4) PAF (paroxysmal atrial fibrillation) Status: Chronic (5) Mitral regurgitation Status: Chronic (6) Hypotension Status: Acute (7) Dilated cardiomyopathy Status: Chronic - Assessment and Plan CHF exacerbation Dilated Cardiomyopathy hypoxia CKD PAF MR Hypotension 10/11/17 Agree with attending gentle diuresing. Pt took 2.5mg metolazone yesterday, bumex 1mg bid IV. BNP >30,000. CR 2.7, baseline 2-2.5, follows w/[facility]. Not a candidate for BB therapy for HF due to severe hypotension. Most recent ECHO 07/2017: EF 20-25, dilated left atrium and ventricle, mod- severe MR, pa pressure 57mmHg Continue supplemental O2 support per attending, lungs improving this afternoon. Tele AV paced, rate 60's; RN contacted [employer] reviewed home monitoring and report no events or arrhythmias. Will check device tomorrow. ECHO to be done tomorrow. THS pending, LFT's wnl. Troponin negative x2. Continue home midodrine, monitor pressures while diuresing. 10/12/17 Has JVD. Increase Bumex to 2mg Q8H IV for diuresis Hospital Course Summary Disclaimer: The visit summary below is not to be considered part of the above Progress Note. Hospital Course: 10/11/17 Admission Inpatient admission for treatment of acute systolic heart failure with subsequent pulmonary edema and hypoxia. Anticipate greater than 2 midnights of care needed. Cardiac tele secondary to afib, cardiomyopathy and medications. Check Serial troponin due to HF. Supplemental oxygen to maintain saturations. Increase Bumex to help motivate fluid - Bumex 1mg IV BID orders. Will need to monitor creatinine, potassium, and BP closely. Consult with Dr Lubin for cardiac evaluation. Continue with Coumadin, monitoring INR. Pharm consult for management. Home medications to continue - holding oral Bumex while on IV Bumex. Replace potassium. PT/OT consult for cardiac rehabilitation. Check liver enzymes secondary to heart failure and medication use. Check TSH secondary to medication use and HF. DNR as per his requests. Care to return to Dr Martinez at time of discharge from [facility] [place]. 10/12/17 Clinically much improved. Breathing better. Creatinine stable. Will decrease Bumex to home dose. Oral potassium 20mEg x1 today. Ambulate QID to monitor for cardiopulmonary symptoms. PT/OT eval placed. Weaned off O2 - monitor oxygen status on RA. Will recheck CXR in am for follow up of pulmonary edema. Likely home in near future if continues to do well. <Mihir Lubin - Last Filed: 10/14/17 11:36> Exam Vital signs: Temperature 96.6 F L 10/13/17 07:32 Pulse Rate 71 10/13/17 08:00 Respiratory Rate 18 10/13/17 07:32 Blood Pressure 95/67 10/13/17 07:32 Pulse Oximetry 95 10/13/17 07:41 Results 10/13/17 03:59 10/13/17 03:59 Assessment and Plan - Assessment and Plan (1) CHF exacerbation Status: Acute (2) CRF (chronic renal failure) Status: Acute (3) Hypoxemia Status: Acute (4) PAF (paroxysmal atrial fibrillation) Status: Chronic (5) Mitral regurgitation Status: Chronic (6) Hypotension Status: Acute (7) Dilated cardiomyopathy Status: Chronic - Attestation Attestation Narrative: 10/14/17 11:35 Recommendation After examining the patient I agree with the above assessment. I am involved in the formulation of the patient's plan of care. Hospital Course Summary Disclaimer: The visit summary below is not to be considered part of the above Progress Note.
[2017-10-12] MEDS ORDERED: PNEUMOCOCCAL 13 VACCINE 0.5ml INJECTION IM ONE (12:00)
[2017-10-12] MEDS ORDERED: WARFARIN 2 MG TABLET PO SCH (12:00)
[2017-10-12] MEDS ORDERED: PNEUMOCOCCAL VAC ADMIN CHARGE INJ ONE (15:00)
[2017-10-12] MEDS ORDERED: MAG-AL + SIM ORAL LIQUID 30ml PO PRN (15:07)
[2017-10-12] MEDS: BUMETANIDE 2.5mg/10ml INJECTION IVP SCH (17:20)
--- NOTE | 2017-10-12 19:17 | Echocardiogram ---
DATE OF PROCEDURE October 12, 2017 This is a two-dimensional echo with spectral Doppler, color-flow and M-mode. It was obtained in a patient with congestive heart failure and pacemaker. Left atrium is dilated. Left ventricular end-diastolic dimension is increased. Left ventricular wall thickness is normal. LV systolic function is reduced with severe global hypokinesia with ejection fraction of about 10%. Right atrium is dilated. Right ventricle is dilated. Aortic root dimension is at the upper limits of normal. Mitral valve is sclerotic with [id number] mitral regurgitation. Aortic valve is a trileaflet structure with some fibrocalcific changes. Transaortic velocities are increased with a peak velocity of 1.91 m/sec with a peak gradient of 15 and mean gradient of 7. Aortic valve area is calculated at 0.97 cm2. However, this could be overestimation since severe LV dysfunction is present. Moderate aortic insufficiency is present. Tricuspid valve shows [id number] tricuspid regurgitation with severe pulmonary hypertension with estimated pulmonary artery systolic pressure of 68. Pulmonary valve shows mild pulmonary insufficiency. There is no pericardial effusion. Pacemaker is seen in the right heart. IMPRESSION 1. Four-chamber dilation. 2. Severe global hypokinesia with ejection fraction of about 10%. 3. Pndmnbhf-qt-[id number] mitral regurgitation. 4. Aortic sclerosis versus aortic stenosis. Valve area is calculated at 0.97 cm2. However, I believe this is overestimation due to LV dysfunction. Aortic valve area likely is in normal range. 5. Ksrvwfmk-hf-dhdccr tricuspid regurgitation with severe pulmonary hypertension with estimated pulmonary artery systolic pressure of 68. 6. Mild pulmonary insufficiency. 7. 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 [facility]
[2017-10-12] MEDS: SIMVASTATIN 20 MG TABLET PO SCH (21:22)
[2017-10-13] MEDS: BUMETANIDE 2.5mg/10ml INJECTION IVP SCH ×2 (00:35→09:57)
[2017-10-13 07:37] VITALS: BP 95/67; RESP 18; TEMP 96.6
[2017-10-13 07:41] VITALS: O2SAT 95
--- NOTE | 2017-10-13 07:50 | Pharmacy Consult ---
Pharmacy Consult-Warfarin - Laboratory Information 10/11/17 10/12/17 10/13/17 07:15 03:51 03:59 INR 2.77 H 2.88 H 3.17 H - Consult Information NO warfarin will be ordered today. Will continue to follow. Thank you.
[2017-10-13] MEDS ORDERED: BUMETANIDE 1 MG TABLET PO SCH (09:00)
--- NOTE | 2017-10-13 09:03 | XRay Report ---
INDICATION: F/U pulmonary edema PROCEDURE: CHEST 2-VIEWS UPRIGHT (PA & LAT) Encounter: Initial COMPARISON: October 11, 2017 FINDINGS: The lungs are stable in appearance with mildly prominent pulmonary vascular and interstitial markings. No significant pleural effusion. No pneumothorax. Cardiac silhouette remains enlarged. Mediastinal contours are stable. Left pacemaker defibrillator. Impression: Stable chest. .
--- NOTE | 2017-10-13 09:26 | Cardiology Progress Note ---
Subjective Principal diagnosis: CHF Interval history: Abner is seen in follow up for CHF exacerbation. He is seen in his room this morning and says he is breathing better after diuresis of large amount of urine. He denies chest pain or pressure. Exam Vital signs: Temperature 96.6 F L 10/13/17 07:32 Pulse Rate 76 10/13/17 07:32 Respiratory Rate 18 10/13/17 07:32 Blood Pressure 95/67 10/13/17 07:32 Pulse Oximetry 95 10/13/17 07:41 - Constitutional no acute distress, well nourished, cooperative - Routine HEENT Exam Head: Present: normocephalic ENT: Present: mucous membranes moist - Routine Neck Exam Present: JVD (improved). Absent: carotid bruit - Routine Chest/Breast/Axilla Exam Chest wall: Present: pacemaker. Absent: tenderness - Routine Respiratory Exam Present: decreased breath sounds, diminished air movement - Routine Cardiovascular Exam Present: RRR, murmur (II/), JVD - Routine Abdominal Exam Present: soft, normoactive bowel sounds - Routine Extremities Exam Present: no edema - Routine Skin Exam Present: intact, dry, warm - Routine Neurological Exam Present: alert, oriented X3 - Routine Psychiatric Exam Present: normal affect, normal thought process - Additional findings Additional findings: Acetaminophen (Tylenol) 650 mg PO Q5H PRN PRN Reason: Discomfort Last Admin: 10/12/17 07:56 Dose: 650 mg Al Hydroxide/Mg Hydroxide (Maalox Plus) 30 ml PO Q4H PRN PRN Reason: Indigestion Last Admin: 10/12/17 15:14 Dose: 30 ml Amiodarone HCl (Pacerone) 200 mg PO DAILY [facility] Last Admin: 10/12/17 08:00 Dose: 200 mg Bisacodyl (Dulcolax) 10 mg RECTALLY DAILY PRN PRN Reason: Constipation Bumetanide (Bumex Tab) 1 mg PO DAILY [facility] Bumetanide (Bumex 2.5 Mg/10 Ml Inj) 2 mg IVP Q8H [facility] Last Admin: 10/13/17 00:35 Dose: 2 mg Magnesium Hydroxide (Mom) 30 ml PO DAILY PRN PRN Reason: Constipation Metolazone (Zaroxolyn) 2.5 mg PO WEEKLY [facility] Midodrine (Proamatine) 10 mg PO 0800,1300,1700 [facility] Last Admin: 10/12/17 17:21 Dose: 10 mg Simvastatin (Zocor) 20 mg PO HS [facility] Last Admin: 10/12/17 21:22 Dose: 20 mg Sodium Chloride (Iv Flush) 10 - 80 ml IVF PRN PRN PRN Reason: Flushing Last Admin: 10/11/17 05:10 Dose: 10 ml Spironolactone (Aldactone) 25 mg PO DAILY [facility] Last Admin: 10/12/17 08:00 Dose: 25 mg Timolol Maleate (Timoptic 0.5% Eye Drops) 1 drops LEFT EYE BID [facility] Last Admin: 10/12/17 21:22 Dose: 1 drops Trolamine Salicylate (Aspercreme) 1 applic TOP QID PRN PRN Reason: MUSCLE ACHES AND PAIN Last Admin: 10/12/17 21:22 Dose: 1 applic Warfarin Sodium (Coumadin Protocol) 0 MC NOTE [facility] Results 10/13/17 03:59 10/13/17 03:59 CBC 10/13/17 Range/Units 03:59 WBC 5.6 (4.5-11.0) T/MM3 RBC 4.23 L (4.50-5.90) M/MM3 Hgb 11.8 L (13.5-17.5) GM/DL Hct 36.7 L (41-53) % Plt Count 193 (130-400) T/MM3 Neut # (Auto) 3.9 (1.8-7.7) T/MM3 Lymph # (Auto) 0.9 L (1-4.8) T/MM3 [place] # (Auto) 0.8 (0-0.8) T/MM3 Eos # (Auto) 0.0 (0-0.5) T/MM3 Baso # (Auto) 0.0 (0-0.2) T/MM3 Comprehensive Metabolic Panel 10/13/17 Range/Units 03:59 Sodium 137 (134-144) MEQ/L Potassium 4.2 D (3.6-5) MEQ/L Chloride 99 (98-107) MEQ/L Carbon Dioxide 28 (22-30) MEQ/L BUN 50.0 H (9-20) MG/DL Creatinine 2.9 H (0.8-1.5) MG/DL Glucose 108 (75-110) MG/DL Calcium 9.4 (8.4-10.2) MG/DL Intake and Output 10/12/17 10/13/17 10/13/17 22:59 06:59 14:59 Intake Total 437 / 437 240 / 240 Balance 437 / 437 240 / 240 Intake: Oral 437 / 437 240 / 240 Other: # Voids 3 Weight 150 lb 12.739 oz Patient Weight 10/14/17 06:59 Weight 150 lb 12.739 oz Assessment and Plan - Assessment and Plan (1) CHF exacerbation Current visit: Yes Status: Acute (2) CRF (chronic renal failure) Current visit: Yes Status: Acute (3) Hypoxemia Current visit: Yes Status: Acute (4) PAF (paroxysmal atrial fibrillation) Current visit: Yes Status: Chronic (5) Mitral regurgitation Current visit: Yes Status: Chronic (6) Hypotension Current visit: Yes Status: Acute (7) Dilated cardiomyopathy Current visit: Yes Status: Chronic - Assessment and Plan CHF exacerbation Dilated Cardiomyopathy hypoxia CKD PAF MR Hypotension 10/11/17 Agree with attending gentle diuresing. Pt took 2.5mg metolazone yesterday, bumex 1mg bid IV. BNP >30,000. CR 2.7, baseline 2-2.5, follows w/Moussa. Not a candidate for BB therapy for HF due to severe hypotension. Most recent ECHO 07/2017: EF 20-25, dilated left atrium and ventricle, mod- severe MR, pa pressure 57mmHg Continue supplemental O2 support per attending, lungs improving this afternoon. Tele AV paced, rate 60's; RN contacted [email or web address] reviewed home monitoring and report no events or arrhythmias. Will check device tomorrow. ECHO to be done tomorrow. THS pending, LFT's wnl. Troponin negative x2. Continue home midodrine, monitor pressures while diuresing. 10/12/17 Has JVD. Increase Bumex to 2mg Q8H IV for diuresis Hospital Course Summary Disclaimer: The visit summary below is not to be considered part of the above Progress Note. Hospital Course: 10/11/17 Admission Inpatient admission for treatment of acute systolic heart failure with subsequent pulmonary edema and hypoxia. Anticipate greater than 2 midnights of care needed. Cardiac tele secondary to afib, cardiomyopathy and medications. Check Serial troponin due to HF. Supplemental oxygen to maintain saturations. Increase Bumex to help motivate fluid - Bumex 1mg IV BID orders. Will need to monitor creatinine, potassium, and BP closely. Consult with Dr Lubin for cardiac evaluation. Continue with Coumadin, monitoring INR. Pharm consult for management. Home medications to continue - holding oral Bumex while on IV Bumex. Replace potassium. PT/OT consult for cardiac rehabilitation. Check liver enzymes secondary to heart failure and medication use. Check TSH secondary to medication use and HF. DNR as per his requests. Care to return to Dr Martinez at time of discharge from [facility] [place]. 10/12/17 Clinically much improved. Breathing better. Creatinine stable. Will decrease Bumex to home dose. Oral potassium 20mEg x1 today. Ambulate QID to monitor for cardiopulmonary symptoms. PT/OT eval placed. Weaned off O2 - monitor oxygen status on RA. Will recheck CXR in am for follow up of pulmonary edema. Likely home in near future if continues to do well.
--- NOTE | 2017-10-13 09:45 | Progress Note ---
- Date 10/13/17 Subjective: F/U: Acute on chronic systolic heart failure, acute hypoxia secondary to pulmonary edema. Mr. Beaver is seen today while sitting up in bed, working on [facility]. He reports that he is feeling better today and states that his breathing continues to improve. He is breathing easily on room air without distress. He denies any complaints or concerns including no chest pain, increased shortness of breath, abdominal pain, nausea, vomiting or dysuria. His appetite is stable and bowels are moving. Labs today revealed resolved hypokalemia. Slight increase in SCr at 2.9 (baseline 2.0-2.5). He follows with Dr. Brandon. Dr. Lubin increased Bumex to 2mg IV Q8 yesterday secondary to JVD on 10/12/17. JVD improved today. Repeat CXR today revealed stable chest. Patient is eager for discharge home. Objective Vital signs: Temperature 96.6 F L 10/13/17 07:32 Pulse Rate 76 10/13/17 07:32 Respiratory Rate 18 10/13/17 07:32 Blood Pressure 95/67 10/13/17 07:32 Pulse Oximetry 95 10/13/17 07:41 Rhythm: Atrial Fibrillation with Normal Ventricular Rate Height/Weight/BMI: Height 5 ft 5 in Weight 150 lb 12.739 oz Body Mass Index 24.9 Comments: resting in bed; breathing easily on room air. - Constitutional Present: no acute distress, well nourished, well developed, cooperative - Routine HEENT Exam Head: Present: normocephalic, atraumatic Eye: Present: PERRL. Absent: conjunctival icterus ENT: Present: mucous membranes moist - Routine Respiratory Exam Present: CTA bilaterally. Absent: respiratory distress, stridor, wheezes - Routine Cardiovascular Exam Present: S1, S2, irregularly irregular - Routine Abdominal Exam Present: soft, normoactive bowel sounds, non distended, non tender - Routine Extremities Exam Present: edema (trace bilateral lower extremity), non tender, full ROM, pulses intact - Routine Back/Spine/Pelvis Exam Back/Spine: Present: full ROM. Absent: vertebral tenderness - Routine Musculoskeletal Exam Musculoskeletal: Present: moving extremities well - Routine Skin Exam Present: intact, dry, warm. Absent: jaundice Comments: afebrile - Routine Neurological Exam Present: alert, oriented X3, CN II-XII intact, moving all extremities, normal speech. Absent: facial asymmetry - Routine Lymphatic Exam Lymphatic: Absent: lymphedema - Routine Psychiatric Exam Present: normal affect, normal thought process, cooperative Results - Labs CBC & Chem 7: 10/13/17 03:59 10/13/17 03:59 - Imaging and Cardiology Chest x-ray Status: image reviewed by me Additional comments: Date of Exam: 10/13/17 Type of Exam(s): XR chest 2V Reason for Exam(s): F/U pulmonary edema FINDINGS: The lungs are stable in appearance with mildly prominent pulmonary vascular and interstitial markings. No significant pleural effusion. No pneumothorax. Cardiac silhouette remains enlarged. Mediastinal contours are stable. Left pacemaker defibrillator. Impression: Stable chest. 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 Breathing better and stable on room air.' Dr. Lubin increased Bumen to 2mg IV QH secondary to JVD on 10/12. JVD improved. Dr. Lubin recommended continuation of Bumex at 1mg BID at home with repeat labs on 10/16 and follow up in clinic in 2 weeks - Emeli Carrasquillo APRN to try and schedule appointment prior to discharge. Hypokalemia resolved. Recommend continuing to monitor closely as outpatient given increased Bumex dose. Repeat CXR this AM revealed stable chest. Encourage patient to monitor weight daily at home and keep log for Dr. Lubin to review. Slight increase in SCr at 2.9 today. Patient follows with Dr. Brandon ( nephrology). Recommend follow up with Dr. Brandon as outpatient and monitoring renal function with increased Bumex dose at home. INR 3.17. Anticipate discharge in near future, hopefully today. Time spent with patient care 25 minutes. DVT Prophylaxis: Coumadin Resuscitation Status: Do Not Resuscitate - Time spent with patient Time with patient PN: 25 minutes - Physician Narrative Physician: Michael Humphreys MD Narrative: Date: 10/13/17 Time: 1035 Have independently interviewed and examined pt. Chart reviewed. Case discussed with Dr Stewart and my PA. Care plan developed with my supervision; agree with above. Doing well this morning. Breathing stable-not congested or having cough. Does note some fatigue when up showing-feels due to him not being as active as usual at home. No pain with breathing. No chest pressure or discomfort. Eating well. No ab pain. Not feeling dizzy or unsteady with positional changes. Lungs: decreased, faint crackles of left side. CV: regular AB: soft nt/nd EXT: no edema MSE: awake alert appropriate Plan: Will discharge to home. F/U with Dr Martinez in [address] Lubin in 2 weeks. See orders for details. Hospital Course Summary Disclaimer: The visit summary below is not to be considered part of the above Progress Note. Hospital Course: 10/11/17 Admission Inpatient admission for treatment of acute systolic heart failure with subsequent pulmonary edema and hypoxia. Anticipate greater than 2 midnights of care needed. Cardiac tele secondary to afib, cardiomyopathy and medications. Check Serial troponin due to HF. Supplemental oxygen to maintain saturations. Increase Bumex to help motivate fluid - Bumex 1mg IV BID orders. Will need to monitor creatinine, potassium, and BP closely. Consult with Dr Lubin for cardiac evaluation. Continue with Coumadin, monitoring INR. Pharm consult for management. Home medications to continue - holding oral Bumex while on IV Bumex. Replace potassium. PT/OT consult for cardiac rehabilitation. Check liver enzymes secondary to heart failure and medication use. Check TSH secondary to medication use and HF. DNR as per his requests. Care to return to Dr Martinez at time of discharge from [facility]. 10/12/17 Clinically much improved. Breathing better. Creatinine stable. Will decrease Bumex to home dose. Oral potassium 20mEg x1 today. Ambulate QID to monitor for cardiopulmonary symptoms. PT/OT eval placed. Weaned off O2 - monitor oxygen status on RA. Will recheck CXR in am for follow up of pulmonary edema. Likely home in near future if continues to do well. Plan - 10/13/17 Clinically much improved. Breathing better and stable on room air.' Dr. Lubin increased Bumen to 2mg IV QH secondary to JVD on 10/12. JVD improved. Dr. Lubin recommended continuation of Bumex at 1mg BID at home with repeat labs on 10/16 and follow up in clinic in 2 weeks - Emeli Carrasquillo APRN to try and schedule appointment prior to discharge. Hypokalemia resolved. Recommend continuing to monitor closely as outpatient given increased Bumex dose. Repeat CXR this AM revealed stable chest. Encourage patient to monitor weight daily at home and keep log for Dr. Lubin to review. Slight increase in SCr at 2.9 today. Patient follows with Dr. Brandon ( nephrology). Recommend follow up with Dr. Brandon as outpatient and monitoring renal function with increased Bumex dose at home. INR 3.17. Anticipate discharge in near future, hopefully today.
[2017-10-13] MEDS: SPIRONOLACTONE 25 MG TABLET PO SCH (09:49)
[2017-10-13] MEDS: AMIODARONE 200 MG TABLET PO SCH (09:50)
[2017-10-13] MEDS: MIDODRINE 10 MG TABLET PO SCH (09:50)
[2017-10-13] MEDS: TIMOLOL 0.5% EYE DROPS 5 ML LEFT EYE SCH (09:54)
--- NOTE | 2017-10-13 11:01 | Discharge Summary ---
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 It was obtained in a patient with congestive heart failure and pacemaker. Left atrium is dilated. Left ventricular end-diastolic dimension is increased. Left ventricular wall thickness is normal. LV systolic function is reduced with severe global hypokinesia with ejection fraction of about 10%. Right atrium is dilated. Right ventricle is dilated. Aortic root dimension is at the upper limits of normal. Mitral valve is sclerotic with ftxrvmez-hg-bdpsbi mitral regurgitation. Aortic valve is a trileaflet structure with some fibrocalcific changes. Transaortic velocities are increased with a peak velocity of 1.91 m/sec with a peak gradient of 15 and mean gradient of 7. Aortic valve area is calculated at 0.97 cm2. However, this could be overestimation since severe LV dysfunction is present. Moderate aortic insufficiency is present. Tricuspid valve shows acrumbtx-xg-ugisgu tricuspid regurgitation with severe pulmonary hypertension with estimated pulmonary artery systolic pressure of 68. Pulmonary valve shows mild pulmonary insufficiency. There is no pericardial effusion. Pacemaker is seen in the right heart. IMPRESSION 1. Four-chamber dilation. 2. Severe global hypokinesia with ejection fraction of about 10%. 3. Nqmuwqiz-av-emqjuo mitral regurgitation. 4. Aortic sclerosis versus aortic stenosis. Valve area is calculated at 0.97 cm2. However, I believe this is overestimation due to LV dysfunction. Aortic valve area likely is in normal range. 5. Btmwitrs-if-xsjuyd tricuspid regurgitation with severe pulmonary hypertension with estimated pulmonary artery systolic pressure of 68. 6. Mild pulmonary insufficiency. 7. 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 - Laboratory Labs: Admit Lab 10/11/17 00:40 WBC 5.4 Hgb 11.9 L Hct 37.3 L MCV 88.0 Plt Count 213 Neut % (Auto) 71.3 H Lymph % (Auto) 14.4 L Kent % (Auto) 12.2 H Eos % (Auto) 1.3 Baso % (Auto) 0.4 Admiot Lab 10/11/17 10/11/17 00:41 07:12 Sodium 139 Potassium 3.4 L Chloride 100 Carbon Dioxide 26 Anion Gap 13 BUN 49.0 H Creatinine 2.8 H GFR Calculation 22 BUN/Creatinine Ratio 18 Glucose 117 H Calculated Osmolality 282 H Calcium 9.1 Total Bilirubin 0.90 AST 38 ALT 45 Alkaline Phosphatase 73 Troponin I 0.056 B-Natriuretic Peptide 63605 H Total Protein 6.8 Albumin 3.8 Globulin 3.0 Albumin/Globulin Ratio 1.3 Plasma Lactate 1.1 TSH 10/12/17 03:51 TSH 2.31 10/13/17 03:59 10/13/17 03:59 INRs 10/11/17 10/13/17 07:15 03:59 INR 2.77 H 3.17 H - Radiology Radiology: Date of Exam: 10/11/17 Procedure: XR chest 1V Findings: Life support devices: Unchanged left pectoral dual-chamber biventricular pacer/ ICD device. Lungs and airways: Normal lung volumes. No focal airspace consolidation. Pulmonary vascular redistribution. Increased basilar interstitial markings. Pleura: No pleural effusion or pneumothorax. Heart and mediastinum: Cardiomegaly. Aortic atherosclerosis. Osseous structures and soft tissues: No acute osseous abnormality is seen. Impression: Cardiomegaly with pulmonary vascular redistribution and increased basilar interstitial markings suggesting mild congestive changes and early interstitial edema. --------- Date of Exam: 10/13/17 PROCEDURE: CHEST 2-VIEWS UPRIGHT (PA & LAT) FINDINGS: The lungs are stable in appearance with mildly prominent pulmonary vascular and interstitial markings. No significant pleural effusion. No pneumothorax. Cardiac silhouette remains enlarged. Mediastinal contours are stable. Left pacemaker defibrillator. Impression: Stable chest. History of Present Illness HPI: 82 y/o male w/ h/o cardiomyopathy, CHF, valvular heart disease and multiple other medical conditions presents to ER brought by his son d/t increasing dyspnea / shortness of air over the past 24 hours and also orthopnea noted when he tried to go to bed last night. Patient states he took a Metolazone tab yesterday morning however did not help - has helped in the past but not this time. Denies cp, diaphoresis, dysphagia, n/v/d, melena, palpitations, dizziness, lightheadedness and syncope; reports HARDY starting just before leaving home for the ER - states is better now In ED had initial sats on RA in the 60s, given O2 at 2L/min, a dose of Bumex 1mg IV x one and sats now in the 90s on 2 L/min. Patient is not on any O2 at [facility] CXR showed increased pulmonary vascular congestion, no acute infectious process. Influenza swabs were negative. BUN/Cr = 45/2.8; BNP = 31,700. Troponin = 0.056 Patient to be admitted to the hospitalist service for further evaluation and management and Cardiology consulted. For complete details of the H&P refer to that document. Objective Vital signs: Temperature 96.6 F L 10/13/17 07:32 Pulse Rate 76 10/13/17 07:32 Respiratory Rate 18 10/13/17 07:32 Blood Pressure 95/67 10/13/17 07:32 Pulse Oximetry 95 10/13/17 07:41 Rhythm: Atrial Fibrillation with Normal Ventricular Rate Height/Weight/BMI: Height 1.65 m Weight 68.4 kg Body Mass Index 24.9 Hospital Course This is a general summary of the patient's hospital course. For more details refer to the complete medical record. Hospital course: 10/11/17 Admission Inpatient admission for treatment of acute systolic heart failure with subsequent pulmonary edema and hypoxia. Anticipate greater than 2 midnights of care needed. Cardiac tele secondary to afib, cardiomyopathy and medications. Check Serial troponin due to HF. Supplemental oxygen to maintain saturations. Increase Bumex to help motivate fluid - Bumex 1mg IV BID orders. Will need to monitor creatinine, potassium, and BP closely. Consult with Dr Lubin for cardiac evaluation. Continue with Coumadin, monitoring INR. Pharm consult for management. Home medications to continue - holding oral Bumex while on IV Bumex. Replace potassium. PT/OT consult for cardiac rehabilitation. Check liver enzymes secondary to heart failure and medication use. Check TSH secondary to medication use and HF. DNR as per his requests. Care to return to Dr Martinez at time of discharge from [facility]. 10/12/17 Clinically much improved. Breathing better. Creatinine stable. Will decrease Bumex to home dose. Oral potassium 20mEg x1 today. Ambulate QID to monitor for cardiopulmonary symptoms. Weaned off O2 - monitor oxygen status on RA. Will recheck CXR in am for follow up of pulmonary edema. Likely home in near future if continues to do well. 10/13/17 Clinically much improved. Breathing better and stable on room air. Dr. Lubin increased Bumen to 2mg IV QH secondary to JVD on 10/12. JVD improved. Dr. Lubin recommended increasing Bumex at 1mg BID at home with repeat labs on 10/16 and follow up in clinic in 2 weeks - Emeli Carrasquillo APRN to try and schedule appointment prior to discharge. Hypokalemia resolved. Recommend continuing to monitor closely as outpatient given increased Bumex dose. Will need BMP on 10/15/17 for monitoring. Repeat CXR this AM revealed stable chest. Encourage patient to monitor weight daily at home and keep log for Dr. Lubin to review. Slight increase in SCr at 2.9 today. Patient follows with Dr. Brandon ( nephrology). Recommend follow up with Dr. Brandon as outpatient and monitoring renal function with increased Bumex dose at home. INR 3.17. With improvement of clinical symptoms will discharge to home. See orders for details. Time spent with patient: discharge greater than 30 minutes Resuscitation Status: Do Not Resuscitate Discharge Plan - Discharge Disposition Discharge Date: 10/13/17 Disposition: Discharged Home, Self-Care *Condition: Stable Reason For Visit (Visit label in EMR): fluid build up poss due to CHF, SOB - Discharge Medications *Discharge Medications: New Bumetanide Tab [Bumex 1 mg Tab] 1 mg PO 1500 #30 tab Continue Amiodarone [Pacerone] 200 mg PO DAILY #0 Warfarin Sodium 2 mg PO DAILY #0 Timolol Maleate/Pf [Timoptic 0.5% Ocudose Drop] 1 drop LEFT EYE PRN PRN #0 ml PRN Reason: Dry Eyes Midodrine HCl 10 mg PO TID #0 tab Cyanocobalamin (Vitamin B-12) [Vitamin B12] 2,000 mg PO DAILY Bumetanide 1 mg PO AM #0 tab metOLazone [Metolazone] 2.5 mg PO WEEKLY #0 tab Spironolactone [Aldactone] 25 mg PO DAILY Changed Simvastatin [Zocor] 20 mg PO HS #0 Discontinued Bumetanide 0.5 mg PO PM - Discharge Packet/Instructions *Diet: Low sodium. *Activity: As tolerated *Pain Management/Treatment: Continue prior home pain medications. *Wound Care: N/A Additional Instructions: Dr Lubin has increased your Bumex (budesonide) to 1mg in morning with 1 mg in afternoon. Check and record your weight every day. You will need lab done on Thrusday 10/15/[address] Lubin - [facility] to monitor your electrolytes and renal function. *Expected Signs/Symptoms: Stablity of breathing and weight. *Notify Physician if: Temp >100.4. Increasing weight or swelling of legs. Increasing difficuly breathing. *During Business Hours Contact: Dr Lubin or Dr Martinez. *After Business Hours Contact: Call [facility] and have your care provider contacted. *Pending Lab/Results: No Pending Lab - Referrals/Follow Up *Referrals/Follow Up: Mihir Lubin MD [Physician] - 2 Weeks (Hospital follow up for CHF. ) Chai Martinez MD [Primary Care Provider] - 1 Week ([facility] follow up - CHF exacerbation. ) - Patient Handouts Patient Handouts: [facility] Congestive Heart Failure - Dismissal Complete Discharge Instructions are:: Complete Physician Narrative - Narrative Physician: Michael Humphreys MD Attestation Narrative: Date: 10/13/17 Time: 1058 I have independently interviewed and examined patient prior to discharge. See my progress note from today for details. Medically stable for discharge to home.
[2017-10-13 11:11] VITALS: PULSE 71
== END 2017-10-13 12:40 | disposition home health service (06) | DRG 291 ==
LOC: ED 00:04 → MED 03:19
PROVIDERS: ADMIT Internal Medicine; ATTEND Hospitalist